=== PATIENT | female | born 1935 | race Caucasian/White ===

== ENCOUNTER → 2018-05-24 | Outpatient (CLI) | payer MEDICARE, OTHER ==
[~2018-05-24] MED LIST: CALC500T51 PO; CHOL400C PO; COLE1TAB2 PO; COLI1POW PO; DOCU-131 PO; ENOX40SY4 SQ; IBUP100T6 PO; OMEG300C PO; OMNIPAQUE 350 MG/ML, 100ML BOTTLE ONE; OXYC1TAB7 PO; VIT C PO
== END | disposition home or self-care (01) ==
LOC: CFH 12:55
PROVIDERS: ATTEND Internal Medicine
DX: R10.9 Unspecified abdominal pain (principal); M51.36 Other intervertebral disc degeneration, lumbar region; Z85.43 Personal history of malignant neoplasm of ovary
CPT/HCPCS: 74177; Q9967

== ENCOUNTER 2020-12-21 14:18 | Observation (INO) | payer MEDICARE ==
[~2020-12-21] VITALS: Ht 160 cm; Wt 59.7 kg
[~2020-12-21 14:18] MED LIST changes: -OMNIPAQUE 350 MG/ML, 100ML BOTTLE ONE
--- NOTE | 2020-12-21 14:43 | NUR ---
PATIENT WHEELED BACK FROM TRIAGE WITH CHIEF C/O CHEST PAIN X3 DAYS OFF AND ON. PER PATIENT TODAY SHE STARTED EXPERIENCING CHEST PAIN ABOUT 4 HOURS AGO AND IT HAS BEEN CONTINOUS, PATIENT WENT TO PRIMARY AND WAS REFERRED TO ED FOR A-FIB. PATIENT DENIES N/V/D, STATES PAIN RADIATES DOWN BOTH ARMS. ACCOMPANIED BY SPOUSE.
--- NOTE | 2020-12-21 15:09 | NUR ---
PATIENT AMBULATED TO BATHROOM WITH STEADY GAIT.
--- NOTE | 2020-12-21 15:22 | NUR ---
ER PROVIDER AT BEDSIDE FOR EVALUATION. AFTER PATIENT SAT UP IN BED HR WENT FROM 140'S TO 70'S.
[2020-12-21] MEDS ORDERED: SODIUM CHLORIDE FLUSH 10ML SYR IVF ONE (15:30)
[2020-12-21] MEDS ORDERED: ASPIRIN 325 MG TABLET PO ONE (15:30)
[2020-12-21] MEDS ORDERED: ASPIRIN 325 MG TABLET ONE (15:36)
[2020-12-21 15:40] LABS: MEAN CORPUSCULAR HEMOGLOBIN 32.3 pg (27.0-34.8); MEAN CORPUSCULAR HGB CONC 33.6 g/dL (32.4-35.8); MEAN PLATELET VOLUME 8.9 fL (7.4-10.4); PLATELET COUNT 368 x10^3/uL (130-400); RED BLOOD COUNT 4.11 x10^6/uL (3.82-5.3); RED CELL DISTRIBUTION WIDTH 13.1 % (9.6-15.2)
[2020-12-21 15:53] LABS: ALBUMIN 3.6 g/dL (3.4-5.0); ANION GAP 8 mmol/L (5-15); CALCIUM 9.1 mg/dL (8.5-10.1); CHLORIDE 105 mmol/L (98-107)
[2020-12-21 15:59] LABS: ALANINE AMINOTRANSFERASE 29 U/L (12-78); ALKALINE PHOSPHATASE 96 U/L (45-117); BILIRUBIN,TOTAL 0.6 mg/dL (0.2-1.0); CREATININE 0.72 mg/dL (0.55-1.02); TOTAL PROTEIN 7.5 g/dL (6.4-8.2); TROPONIN I < 0.015 ng/mL (0.000-0.045)
[2020-12-21 16:12] LABS: MD YES
[2020-12-21 16:17] LABS: BASOS#(MANUAL) 0.11 x10^3/uL (0-0.1); BASOS% (MANUAL) 1 % (0-1); LYMPH#(MANUAL) 4.94 x10^3/uL (1-3.4); LYMPHS% (MANUAL) 47 % (22-44); MONOS#(MANUAL) 0.63 x10^3/uL (0.3-2.7); MONOS% (MANUAL) 6 % (2-9); REACTIVE LYMPHS # (MANUAL) 1.05 x10^3/uL (0-0); REACTIVE LYMPHS % (MANUAL) 10 % (0-0); SEG#(MANUAL) 3.78 x10^3/uL (1.8-6.8); SEGS% (MANUAL) 36 % (42-75)
[2020-12-21 16:22] LABS: <PLATELET ESTIMATE> ADEQUATE; <PLT MORPHOLOGY> NORMAL PLT MORPH; <RBC MORPHOLOGY> NORMAL
--- NOTE | 2020-12-21 17:22 | NUR ---
PATIENT AMBULATED TO BATHROOM AND BACK TO [facility] WITH STEADY GAIT. CONNECTED TO MONITOR, NADN, CALL LIGHT WITHIN REACH. WAITING FOR ROOM ASSIGNMNT UPSTAIRS.
--- NOTE | 2020-12-21 18:38 | NUR ---
PATIENT SITTING IN GURNEY, TALKING ON PHONE, SILVAN, VSS, CALL LIGHT WITHIN REACH. WAITING FOR ROOM ASSINGMENT UPSTAIRS, PATIENT UPDATED ON POC.
--- NOTE | 2020-12-21 18:52 | NUR ---
pt in [facility] in no acute distress at this time. on cr monitor and nsr noted. no complaints of pain at this time, waiting for a room for admission.
--- NOTE | 2020-12-21 19:53 | NUR ---
no changes to pt. resting comfortably, waiting on room for admission to cards/tele.
--- NOTE | 2020-12-21 20:57 | NUR ---
order of acknowledgment received from hospitalist so pt can be transferred to the floor now.
[2020-12-21] MEDS ORDERED: NITROGLYCERIN 0.4 MG BOTTLE (25 TABS) SL PRN (21:30)
[2020-12-21] MEDS ORDERED: ACETAMINOPHEN 325 MG TABLET PO PRN (21:30)
[2020-12-21] MEDS ORDERED: DOCUSATE 100 MG CAPSULE PO PRN (21:30)
[2020-12-21] MEDS ORDERED: ONDANSETRON 2MG/ML, 2ML IVPush PRN (21:30)
[2020-12-21] MEDS ORDERED: LABETALOL 5MG/ML, 20ML IVPush PRN (21:30)
[2020-12-21] MEDS ORDERED: MELATONIN 5 MG TABLET PO PRN (21:30)
[2020-12-21] MEDS ORDERED: ASPI81TA45 PO (22:24)
[2020-12-21] MEDS ORDERED: VITA1CAP PO (22:24)
[2020-12-21] MEDS ORDERED: METO25TA91 PO (22:24)
[2020-12-21] MEDS ORDERED: CHOL10003 PO (22:24)
[2020-12-21 22:26] VITALS: BP 158/72
[2020-12-21 22:41] LABS: TROPONIN I 0.045 ng/mL (0.000-0.045)
[2020-12-21] MEDS ORDERED: CALC1TAB41 PO (22:48)
[2020-12-22 03:20] VITALS: BP 128/75
[2020-12-22 04:28] LABS: BASOPHILS % (AUTO) 1 % (0-1); EOSINOPHILS % (AUTO) 1 % (1-7); LYMPHOCYTES % (AUTO) 47 % (22-44); MEAN CORPUSCULAR HEMOGLOBIN 32.5 pg (27.0-34.8); MEAN CORPUSCULAR HGB CONC 33.9 g/dL (32.4-35.8); MEAN PLATELET VOLUME 8.6 fL (7.4-10.4); MONOCYTES % (AUTO) 8 % (2-9); NEUTROPHILS % (AUTO) 43 % (42-75); PLATELET COUNT 360 x10^3/uL (130-400); RED CELL DISTRIBUTION WIDTH 13.1 % (9.6-15.2)
[2020-12-22 04:29] LABS: MD NO
[2020-12-22 04:42] LABS: ANION GAP 4 mmol/L (5-15); CALCIUM 8.8 mg/dL (8.5-10.1); CHLORIDE 107 mmol/L (98-107)
[2020-12-22 04:50] LABS: CREATININE 0.68 mg/dL (0.55-1.02); TROPONIN I 0.032 ng/mL (0.000-0.045)
[2020-12-22 07:15] VITALS: BP 169/70
[2020-12-22] MEDS ORDERED: REGADENOSON 0.4 MG/5 ML SYRINGE ONE (08:37)
[2020-12-22] MEDS ORDERED: ASCORBIC ACID 500 MG TABLET PO SCH (09:00)
[2020-12-22] MEDS ORDERED: METOPROLOL SUCCINATE 25 MG TAB.ER.24H PO SCH (09:00)
[2020-12-22] MEDS ORDERED: COLESTIPOL 1 GM TABLET PO SCH (09:00)
[2020-12-22] MEDS ORDERED: MAG OXIDE HOMEMEDPO SCH (09:00)
[2020-12-22] MEDS ORDERED: ASPIRIN 81 MG TABLET EC PO SCH (09:00)
[2020-12-22] MEDS ORDERED: CALCIUM CARBONATE HOMEMEDPO SCH (09:00)
[2020-12-22] MEDS ORDERED: [UNRECOGNIZED DRUG - OTHER] HOMEMEDPO SCH (09:00)
[2020-12-22] MEDS ORDERED: MULTIVITS,STRESS FORMULA 1 TABLET PO SCH (09:00)
[2020-12-22] MEDS ORDERED: CHOLECALCIFEROL 1,000 UNIT TABLET PO SCH (09:00)
[2020-12-22] MEDS ORDERED: HEPARIN 5,000 UNITS/ML, 1ML IV PRN (10:00)
[2020-12-22] MEDS ORDERED: HEPARIN 5,000 UNITS/ML, 1ML IV ONE (10:00)
[2020-12-22] MEDS ORDERED: HEPARIN 25,000 UNITS/250ML PMX 250 ML IV PRN (10:00)
[2020-12-22 13:51] VITALS: BP 163/92
[2020-12-22] MEDS ORDERED: ATOR20TA37 PO (15:15)
[2020-12-22] MEDS ORDERED: APIX5TAB PO (15:15)
[2020-12-22] MEDS ORDERED: ATORVASTATIN 20 MG TABLET PO SCH (21:00)
[2020-12-23] MEDS ORDERED: METOPROLOL SUCCINATE 50 MG TAB.ER.24H PO SCH (09:00)
== END 2020-12-22 17:11 | disposition home or self-care (01) ==
LOC: ED 16:29 → EDIP 18:18 → INTOOBSV 18:18 → 5SO 21:19
PROVIDERS: ADMIT Family Medicine; ATTEND Family Medicine
DX: R07.89 Other chest pain (principal); I48.20 Chronic atrial fibrillation, unspecified; I48.0 Paroxysmal atrial fibrillation; I10 Essential (primary) hypertension; M19.90 Unspecified osteoarthritis, unspecified site; D68.69 Other thrombophilia; R00.1 Bradycardia, unspecified; G62.0 Drug-induced polyneuropathy; K52.9 Noninfective gastroenteritis and colitis, unspecified; T45.1X5A Adverse effect of antineoplastic and immunosuppressive drugs, initial encounter; Z85.43 Personal history of malignant neoplasm of ovary; Z87.891 Personal history of nicotine dependence; Z90.81 Acquired absence of spleen; Z96.641 Presence of right artificial hip joint; Z79.899 Other long term (current) drug therapy
CPT/HCPCS: 36415; 71045; 78452; 80048; 80053; 83036; 83735; 84443; 84484; 85025; 85520; 93005; 93017; 93306; 96365; 96366; 96376; 99285; A9502; G0378; J1644; J2785

== ENCOUNTER 2021-01-25 05:51 | Observation (INO) | payer MEDICARE ==
[~2021-01-25] VITALS: Ht 160 cm; Wt 59.0 kg
[~2021-01-25 05:51] MED LIST changes: +APIX5TAB PO; +ASPI81TA45 PO; +ATOR20TA37 PO; +CALC1TAB41 PO; +CHOL10003 PO; +METO25TA91 PO; +VITA1CAP PO
[2021-01-25] MEDS ORDERED: CEFAZOLIN PMX 1GM/50ML 50 ML IVPB ONE (06:30)
[2021-01-25] MEDS: SODIUM CHLORIDE 0.9% 1,000 ML IV SCH ×3 (06:30→22:30)
[2021-01-25] MEDS ORDERED: MIDAZOLAM 1 MG/ML, 2ML ONE ×2 (06:33→08:25)
[2021-01-25] MEDS ORDERED: FENTANYL PF 100 MCG/2ML ONE (06:33)
[2021-01-25] MEDS ORDERED: CEFAZOLIN PMX 1GM/50ML 50 ML ONE (06:33)
[2021-01-25] MEDS ORDERED: CEFAZOLIN 1,000 MG ONE (06:33)
[2021-01-25] MEDS ORDERED: LIDOCAINE 1%, 20ML ONE (06:33)
[2021-01-25 06:34] VITALS: BP 149/71
[2021-01-25 07:06] LABS: BASOPHILS % (AUTO) 1 % (0-1); EOSINOPHILS % (AUTO) 1 % (1-7); LYMPHOCYTES % (AUTO) 40 % (22-44); MEAN CORPUSCULAR HGB CONC 33.2 g/dL (32.4-35.8); MEAN PLATELET VOLUME 9.7 fL (7.4-10.4); MONOCYTES % (AUTO) 8 % (2-9); NEUTROPHILS % (AUTO) 51 % (42-75); PLATELET COUNT 280 x10^3/uL (130-400); RED BLOOD COUNT 3.73 x10^6/uL (3.82-5.3); RED CELL DISTRIBUTION WIDTH 13.1 % (9.6-15.2)
[2021-01-25 07:18] LABS: ALANINE AMINOTRANSFERASE 39 U/L (12-78); ALBUMIN 3.4 g/dL (3.4-5.0); ANION GAP 9 mmol/L (5-15); CALCIUM 8.5 mg/dL (8.5-10.1); CHLORIDE 109 mmol/L (98-107); CHOLESTEROL, TOTAL 108 mg/dL (140-239); CREATININE 0.76 mg/dL (0.55-1.02)
[2021-01-25 07:26] LABS: MD NO
[2021-01-25 07:30] LABS: ALKALINE PHOSPHATASE 84 U/L (45-117); BILIRUBIN,TOTAL 0.8 mg/dL (0.2-1.0); CHOL/HDL RATIO 1.4; HDL CHOL % 74 % (28-40); HDL CHOLESTEROL (DIRECT) 80 mg/dL (40-60); LDL CHOLESTEROL,CALCULATED 16 mg/dL (54-169); LDL/HDL RATIO 0.2 (0.5-3.0); TRIGLYCERIDES 59 mg/dL (50-200); VLDL CHOLESTEROL 12 mg/dL (0-25)
[2021-01-25 07:45] LABS: INTERNATIONAL NORMALIZED RATIO 1.11 (0.93-1.1); PROTHROMBIN TIME 11.9 Seconds (9.6-11.5)
[2021-01-25 09:00] VITALS: BP 144/71
[2021-01-25] MEDS: METOPROLOL SUCCINATE 25 MG TAB.ER.24H PO SCH ×2 (09:00→21:57)
[2021-01-25] MEDS: SODIUM CHLORIDE FLUSH 10ML SYR IVF SCH ×2 (09:00→21:00)
[2021-01-25] MEDS ORDERED: HOLD MEDICATION MC PRN (09:00)
[2021-01-25] MEDS: ACETAMINOPHEN 325 MG TABLET PO PRN ×3 (09:47→22:52)
[2021-01-25 12:10] VITALS: BP 157/72
[2021-01-25 14:58] VITALS: BP 158/82
[2021-01-25 19:58] VITALS: BP 134/62
[2021-01-25] MEDS ORDERED: ATORVASTATIN 20 MG TABLET PO SCH (21:00)
[2021-01-26 01:16] VITALS: BP 124/70
[2021-01-26] MEDS: SODIUM CHLORIDE 0.9% 1,000 ML IV SCH (06:30)
[2021-01-26] MEDS ORDERED: ACET325T26 PO (07:53)
[2021-01-26] MEDS ORDERED: APIX2.5T PO (08:07)
[2021-01-26 08:15] VITALS: BP 157/79
[2021-01-26] MEDS: SODIUM CHLORIDE FLUSH 10ML SYR IVF SCH (08:55)
[2021-01-26] MEDS: METOPROLOL SUCCINATE 25 MG TAB.ER.24H PO SCH (08:55)
== END 2021-01-26 11:00 | disposition home or self-care (01) ==
LOC: CACL 05:51 → 5SO 08:42 → CACL 08:50 → 5SO 16:32
PROVIDERS: ADMIT Internal Medicine Clinical Cardiac Electrophysiology; ATTEND Internal Medicine Clinical Cardiac Electrophysiology
DX: I49.5 Sick sinus syndrome (principal); I48.91 Unspecified atrial fibrillation; E78.5 Hyperlipidemia, unspecified; R07.89 Other chest pain; Z79.899 Other long term (current) drug therapy; Z79.01 Long term (current) use of anticoagulants
CPT/HCPCS: 33208; 36415; 71045; 80053; 80061; 85025; 85610; 99156; 99157; C1779; C1785; C1892; G0378; J0690; J2250; J3010; J3490

== ENCOUNTER 2021-07-12 10:35 | Inpatient (IN) | payer MEDICARE ==
[~2021-07-12] VITALS: Ht 160 cm; Wt 59.6 kg
[2021-07-12] VITALS (9 sets, daily range): BP systolic 123–168; BP diastolic 64–80
[~2021-07-12 10:35] MED LIST changes: +ACET325T26 PO; +APIX2.5T PO
[2021-07-12] MEDS ORDERED: SODIUM CHLORIDE FLUSH 10ML SYR IVF ONE (11:30)
[2021-07-12] MEDS ORDERED: SODIUM CHLORIDE 0.9% 1,000ML IVBOLUS ONE (11:30)
[2021-07-12 11:49] LABS: MEAN CORPUSCULAR HEMOGLOBIN 20.3 pg (27.0-34.8); MEAN CORPUSCULAR HGB CONC 30.4 g/dL (32.4-35.8); MEAN PLATELET VOLUME 8.3 fL (7.4-10.4); PLATELET COUNT 444 x10^3/uL (130-400); RED BLOOD COUNT 2.93 x10^6/uL (3.82-5.3); RED CELL DISTRIBUTION WIDTH 19.4 % (9.6-15.2)
[2021-07-12 12:07] LABS: INTERNATIONAL NORMALIZED RATIO 1.09 (0.93-1.1); PROTHROMBIN TIME 11.6 Seconds (9.6-11.5)
[2021-07-12 12:10] LABS: ANISOCYTOSIS 2+; BASOS#(MANUAL) 0.15 x10^3/uL (0-0.1); BASOS% (MANUAL) 2 % (0-1); ECHINOCYTES 1+; EOS#(MANUAL) 0.23 x10^3/uL (0.0-0.4); EOS% (MANUAL) 3 % (1-7); HYPOCHROMIA 2+; LYMPH#(MANUAL) 3.54 x10^3/uL (1-3.4); LYMPHS% (MANUAL) 46 % (22-44); MICROCYTOSIS 2+; MONOS#(MANUAL) 0.31 x10^3/uL (0.3-2.7); MONOS% (MANUAL) 4 % (2-9); SEG#(MANUAL) 3.47 x10^3/uL (1.8-6.8); SEGS% (MANUAL) 45 % (42-75)
[2021-07-12 12:11] LABS: <PLATELET ESTIMATE> INCREASED; <PLT MORPHOLOGY> NORMAL PLT MORPH; TARGET CELLS 1+
[2021-07-12 12:22] LABS: ALANINE AMINOTRANSFERASE 16 U/L (12-78); ALKALINE PHOSPHATASE 102 U/L (45-117); ANION GAP 9 mmol/L (5-15); BILIRUBIN,TOTAL 0.6 mg/dL (0.2-1.0); CALCIUM 9.1 mg/dL (8.5-10.1); CHLORIDE 106 mmol/L (98-107); CREATININE 0.74 mg/dL (0.55-1.02); TOTAL PROTEIN 7.2 g/dL (6.4-8.2)
[2021-07-12 12:23] LABS: ALBUMIN 3.2 g/dL (3.4-5.0)
[2021-07-12] MEDS ORDERED: LORazepam 2 MG/ML, 1ML IVPush ONE (12:30)
--- NOTE | 2021-07-12 13:18 | NUR ---
Pt waiting for blood tx, pt does not want to be admitted to hospital wants to receive blood and be dc from ER. Will update ERP. VSS. AIDET provided.
--- NOTE | 2021-07-12 13:44 | NUR ---
Blood bank sending blood now, consent signed for tx. NACHOS.
--- NOTE | 2021-07-12 14:09 | NUR ---
Blood tx started, see tx history. VSS. Double checked with Kaylee, RN Dr Miranda spoke with pt.
--- NOTE | 2021-07-12 14:17 | NUR ---
Pt agrees to stay for admission and further w/u. VSS, no rxn to tx so far.
--- NOTE | 2021-07-12 15:00 | NUR ---
Report to ENDO RN's, pt belongings and all paperwork sent up with pt to OR. PRBC with last remaining infusing. VSS.
[2021-07-12] MEDS ORDERED: PROPOFOL 10 MG/ML, 20ML ONE (15:05)
[2021-07-12] MEDS: OMEPRAZOLE 20 MG CAPSULE.DR PO SCH (15:30)
[2021-07-12] MEDS ORDERED: hydrALAzine 20 MG/ML, 1ML IVPush PRN (17:00)
[2021-07-12] MEDS ORDERED: morphine SULFATE 10 MG/ML, 1ML IVPush PRN (17:00)
[2021-07-12] MEDS ORDERED: ACETAMINOPHEN 325 MG TABLET PO PRN (17:00)
[2021-07-12] MEDS ORDERED: DOCUSATE 100 MG CAPSULE PO PRN (17:00)
[2021-07-12] MEDS ORDERED: OXYcodone IR 5MG TABLET PO PRN (17:00)
[2021-07-12] MEDS: METOPROLOL TARTRATE 25 MG TAB PO SCH (20:21)
[2021-07-12] MEDS: ATORVASTATIN 20 MG TABLET PO SCH ×2 (20:22→20:24)
[2021-07-13] VITALS (7 sets, daily range): BP systolic 120–136; BP diastolic 57–80
[2021-07-13 04:39] LABS: ALBUMIN 2.3 g/dL (3.4-5.0); ANION GAP 7 mmol/L (5-15); CALCIUM 8.4 mg/dL (8.5-10.1); CHLORIDE 108 mmol/L (98-107)
[2021-07-13 04:48] LABS: ALANINE AMINOTRANSFERASE 16 U/L (12-78); ALKALINE PHOSPHATASE 86 U/L (45-117); BILIRUBIN,TOTAL 2.3 mg/dL (0.2-1.0); CHOL/HDL RATIO 1.6; CHOLESTEROL, TOTAL 89 mg/dL (140-239); CREATININE 0.67 mg/dL (0.55-1.02); HDL CHOL % 62 % (28-40); HDL CHOLESTEROL (DIRECT) 55 mg/dL (40-60); LDL CHOLESTEROL,CALCULATED 20 mg/dL (54-169); LDL/HDL RATIO 0.4 (0.5-3.0); TOTAL PROTEIN 5.9 g/dL (6.4-8.2); TRIGLYCERIDES 68 mg/dL (50-200); VLDL CHOLESTEROL 14 mg/dL (0-25)
[2021-07-13] MEDS: OMEPRAZOLE 20 MG CAPSULE.DR PO SCH (06:08)
[2021-07-13] MEDS ORDERED: SODIUM CHLORIDE 0.9% 250 ML IV SCH (09:00)
[2021-07-13] MEDS ORDERED: MAG OXIDE HOMEMEDPO SCH (09:00)
[2021-07-13] MEDS ORDERED: [UNRECOGNIZED DRUG - OTHER] HOMEMEDPO SCH (09:00)
[2021-07-13] MEDS ORDERED: CALCIUM CARBONATE HOMEMEDPO SCH (09:00)
[2021-07-13] MEDS ORDERED: ASCORBIC ACID 500 MG TABLET PO SCH (09:00)
[2021-07-13] MEDS ORDERED: COLESTIPOL 1 GM TABLET PO SCH (09:00)
[2021-07-13] MEDS ORDERED: MULTIVITS,STRESS FORMULA 1 TABLET PO SCH (09:00)
[2021-07-13] MEDS: METOPROLOL TARTRATE 25 MG TAB PO SCH (09:05)
[2021-07-13] MEDS ORDERED: OMEP-110 PO (11:52)
== END 2021-07-13 16:10 | disposition home or self-care (01) | DRG 378 ==
LOC: ED 11:43 → EDIP 15:10 → 4NE 16:34
PROVIDERS: ADMIT Internal Medicine; ATTEND Family Medicine
PROC: 0DB98ZX Excision of Duodenum, Via Natural or Artificial Opening Endoscopic, Diagnostic (ICD-10-PCS; 2021-07-12)
PROC: 0DB68ZX Excision of Stomach, Via Natural or Artificial Opening Endoscopic, Diagnostic (ICD-10-PCS; 2021-07-12)
PROC: 30233N1 Transfusion of Nonautologous Red Blood Cells into Peripheral Vein, Percutaneous Approach (ICD-10-PCS; principal; 2021-07-12 15:00)
DX: K29.71 Gastritis, unspecified, with bleeding (principal); D62 Acute posthemorrhagic anemia; D68.69 Other thrombophilia; G62.9 Polyneuropathy, unspecified; I10 Essential (primary) hypertension; I48.0 Paroxysmal atrial fibrillation; I49.5 Sick sinus syndrome; M19.90 Unspecified osteoarthritis, unspecified site; Z79.01 Long term (current) use of anticoagulants; Z85.43 Personal history of malignant neoplasm of ovary; Z87.891 Personal history of nicotine dependence; Z90.49 Acquired absence of other specified parts of digestive tract; Z90.81 Acquired absence of spleen; Z91.81 History of falling; Z92.21 Personal history of antineoplastic chemotherapy; Z95.0 Presence of cardiac pacemaker; Z96.641 Presence of right artificial hip joint; Z20.822 Contact with and (suspected) exposure to COVID-19
CPT/HCPCS: 36415; 36430; 80053; 80061; 83036; 83615; 83735; 84100; 84443; 85014; 85018; 85025; 85610; 85730; 86850; 86900; 86923; 87635; 88305; 93005; 99285; G0378; J2704; J7030; P9016